=== PATIENT | female | born 1940 | race Caucasian/White ===

== ENCOUNTER 2024-08-03 16:36 | Emergency (ER) | payer MEDICARE, BC, SELFPAY ==
[2024-08-03 16:40] VITALS: BP 147/68; PULSE 103; RESP 19; TEMP 36.3; O2SAT 95
--- NOTE | 2024-08-03 17:17 | XR_ITS ---
Examination: CT brain head without contrast. 2-D sagittal coronal reconstructions Date and time of exam:August 03, 2024 1907 hrs. Indications: Patient fell today with facial laceration CTDI: vol (mGy):49.8 DLP: (mGycm):Thousand 55 Technique: Multiple CT axial sections of the brain have been obtained, 5 mm slice thickness. Contrast has not been administered. 2-D sagittal, coronal reconstructions have been obtained Low dose protocols were performed. One or more of the following dose reduction techniques were used; automated exposure control, adjustment of the mA and/or KV according to patient size, use of iterative reconstruction technique. Findings: No significant ventricular enlargement. Intra-axial or extra-axial hemorrhage density is not seen. No mass effect or midline shift Basal cisterns are not remarkable. Fourth ventricle is midline. Cranial vault intact. Impression: Negative for acute hemorrhage, mass effect or midline shift Bilateral nasal bone fractures
--- NOTE | 2024-08-03 17:17 | XR_ITS ---
Examination: CT cervical spine without contrast 2-D sagittal reconstructions 2-D coronal reconstructions 3-D reconstructions. Exam date and time:August 03, 2024 1907 hrs. Indications: Patient fell today with into the neck, neck pain CTDI:vol (mGy) 7.25 DLP: (mGycm) 159 Technique: Multiple 2 mm axial sections of the cervical spine have been obtained. The coronal and sagittal reconstructions have been obtained. 3-D reconstructions have been obtained. Low dose protocols were performed. One or more of the following dose reduction techniques were used; automated exposure control, adjustment of the mA and/or KV according to patient size, use of iterative reconstruction technique. Findings: Axial sections demonstrate intact base of the skull. Cervical fusion C4-C6 with anatomic alignment C1 exhibit satisfactory relationship to the odontoid. No acute cervical vertebral body fracture seen. Alignment posterior spinous processes satisfactory. Impression: No acute cervical fracture.
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
[2024-08-03 18:11] VITALS: BMI 24.1
[2024-08-03 18:22] VITALS: BP 152/87; PULSE 72; RESP 19; TEMP 36.3; O2SAT 99
[2024-08-03 20:30] VITALS: BP 157/84; PULSE 89; RESP 18; O2SAT 98
--- NOTE | 2024-08-03 20:30 | PC.NURSE ---
Wounds to face were cleaned and sterri strips placed by care [facility] [employer]. wound appear clean.
--- NOTE | 2024-08-03 20:45 | PC.NURSE ---
Spoke with critical care specialist on the phone about pts DX and care.
== END 2024-08-03 20:45 | disposition home or self-care (01) ==
PROVIDERS: Emergency Provider Emergency Medicine
DX: S02.2XXA Fracture of nasal bones, initial encounter for closed fracture (principal); M54.2 Cervicalgia; W07.XXXA Fall from chair, initial encounter
CPT/HCPCS: 70450; 72125; 99284